=== PATIENT | male | born 2000 | race Two or more races ===

== ENCOUNTER 2022-09-11 15:27 | Emergency (ER) | payer MEDICAID ==
[~2022-09-11] VITALS: Ht 167.6 cm; Wt 131.9 kg
[2022-09-11 17:22] VITALS: BP 131/65
[2022-09-11] MEDS: LIDOCAINE 1% HCL (LOCAL ANESTH.) INJ 20ML MDV IJ ONE (17:25)
[2022-09-11] MEDS ORDERED: KEP500T PO (17:27)
[2022-09-11] MEDS ORDERED: CEPH-510 PO (17:32)
== END 2022-09-11 17:36 | disposition home or self-care (01) ==
LOC: ER 15:27
DX: S61.412A Laceration without foreign body of left hand, initial encounter (principal); W26.8XXA Contact with other sharp object(s), not elsewhere classified, initial encounter; Y93.89 Activity, other specified; Y92.89 Other specified places as the place of occurrence of the external cause; Y99.8 Other external cause status
CPT/HCPCS: 12002